=== PATIENT | female | born 1995 | race American Indian/Alaskan Native ===

== ENCOUNTER 2022-03-03 00:58 | Inpatient (IN) | payer OTHER ==
[~2022-03-03] VITALS: Ht 152.4 cm; Wt 67.6 kg
--- NOTE | 2022-03-03 11:11 | PR ---
[facility] [address] [place], [place] [address] Signed Progress Notes IP Datetime Report Generated by CPN: 03/03/2022 11:11 PROGRESS NOTES: [id number] Impression: Normal Progression of Labor; Reassuring Heart Rate Procedures: Intrauterine Pressure Catheter; Sterile Vag Exam Plan: Continue Present Management; Augmentation VITAL SIGNS: [id number] Vital Signs: Reviewed; Within Normal Limits EXAM: [id number] Dilatation: 3.0 Effacement: 80 Station: -2 Contractions: Irregular mild MEMBRANES: [id number] Amniotic Fluid Color: Clear Comments: Pt seen and examined. Doing well; comfortable w/ epidural. Ctxs appear irregular w/ external tocometer and slow cervical change noted. Recommended IUP that was placed w/out difficulty. Will continue augmentation per protocol until Ctxs adequate. Detailed vulvar exam performed confirming RN's exam of no lesions performed at admission FETUS A: [id number] FHR Baseline: 145 Variability: Moderate 6-25bpm Accelerations: None Decelerations: None FHR Category: Category I Presentation: Vertex Comments on Fetus A: No evidence of metabolic acidosis FETUS B: [id number] Signing Physician: Silvia Berry DO Copies: ~ *Electronically Signed* 03/03/22 SILVIA RODRIGUEZ DO PATIENT NAME: CHARLES ANAND PROGRESS NOTE DATE OF : [birth year] PHYSICIAN: SILVIA BERRY DO RPT #: [id number] REPORT IS CONFIDENTIAL AND NOT TO BE RELEASED WITHOUT AUTHORIZATION
--- NOTE | 2022-03-03 18:38 | PR ---
[facility] [address] [place], [place] [address] Signed Progress Notes IP Datetime Report Generated by CPN: 03/03/2022 18:38 PROGRESS NOTES: [id number] Impression: Normal Progression of Labor; Reassuring Heart Rate Procedures: Sterile Vag Exam Plan: Continue Present Management; Anticipate Vaginal Delivery Informed Consent Obtain: Vaginal Delivery VITAL SIGNS: [id number] Vital Signs: Reviewed; Within Normal Limits EXAM: [id number] Dilatation: 8.0 Effacement: 90 Station: -1 Contractions: Irregular mild MEMBRANES: [id number] Amniotic Fluid Color: Clear Comments: Pt seen and evaluated. Doing well. Uncomfortable w/ contractions and requesting epidural rebolus by anesthesia. On previous exam OP position noted and now resolved to OA position w/ maternal repositioning. FHT reassuring. Anticipate . Reviewed EFW and adequate pelvis. All questions answered FETUS A: [id number] FHR Baseline: 145 Variability: Moderate 6-25bpm Accelerations: None Decelerations: None FHR Category: Category I Presentation: Vertex Comments on Fetus A: No evidence of metabolic acidosis FETUS B: [id number] Signing Physician: Silvia Berry DO Copies: ~ *Electronically Signed* 03/03/22 183 SILVIA BERRY DO PATIENT NAME: CHARLES ANAND PROGRESS NOTE DATE OF : 96 PHYSICIAN: SILVIA BERRY #: [id number] REPORT IS CONFIDENTIAL AND NOT TO BE RELEASED WITHOUT AUTHORIZATION
--- NOTE | 2022-03-03 21:00 | PR ---
[facility] [address] [facility] [place], [place] [address] Signed Progress Notes IP Datetime Report Generated by CPN: 03/03/2022 21:00 PROGRESS NOTES: [id number] Impression: Normal Progression of Labor; Reassuring Heart Rate Procedures: Sterile Vag Exam Plan: Anticipate Vaginal Delivery Informed Consent Obtain: Vaginal Delivery VITAL SIGNS: [id number] Vital Signs: Reviewed; Within Normal Limits EXAM: [id number] Dilatation: 10.0 Effacement: 100 Station: 0 Contractions: Irregular mild MEMBRANES: [id number] Amniotic Fluid Color: Clear Comments: Pt seen and examined. Doing very well. Feeling strong pressure and urge to push with each contraction. Reassuring FHT. Pushing well with contractions. Anticipate soon. FETUS A: [id number] FHR Baseline: 145 Variability: Moderate 6-25bpm Accelerations: None Decelerations: None FHR Category: Category I Presentation: Vertex Comments on Fetus A: No evidence of metabolic acidosis FETUS B: [id number] Signing Physician: Silvia Berry DO Copies: ~ *Electronically Signed* 03/03/222099 SILVIA BERRY DO PATIENT NAME: CHARLES ANAND PROGRESS NOTE DATE OF : 96 PHYSICIAN: SILVIA BERRY DO RPT #: [id number] REPORT IS CONFIDENTIAL AND NOT TO BE RELEASED WITHOUT AUTHORIZATION
--- NOTE | 2022-03-04 18:27 | PR ---
[facility] [address] [facility] [place] [address] Signed PP Progress Notes Datetime Report Generated by CPN: 03/04/2022 18:27 SUBJECTIVE: [id number] Pain: Within Normal Limits Nausea/Vomiting: Denies Bowel Movement: No Vital Signs: [id number] Vital Signs: Reviewed; Within Normal Limits Cardiovascular: Normal Respiratory: Normal Abdomen/Uterus: Normal Lochia: Normal Vulva/Perineum: Not Done Breasts: Not Done CVA Tenderness: Not Done Extremities: Normal Incision: Not Applicable Progress: Normal Exam Comments: Fundus firm U-2 nontender IMPRESSION/PLAN/PROCEDURES: [id number] Impression: Normal Progression Plan: Continue Present Management Progress Notes: Pt doing well. No concerns. Hgb 10.7. Anticipate discharge tomorrow. Signing Physician: Silvia Berry DO Copies: ~ *Electronically Signed* 03/04/22 1827 SILVIA BERRY DO PATIENT NAME: CHARLES ANAND PROGRESS NOTE DATE OF : 96 PHYSICIAN: SILVIA BERRY DO RPT #: [id number] REPORT IS CONFIDENTIAL AND NOT TO BE RELEASED WITHOUT AUTHORIZATION
--- NOTE | 2022-03-05 11:23 | PR ---
[facility] [address] [facility] [place], [place] [address] Signed PP Progress Notes Datetime Report Generated by CPN: 03/05/2022 11:23 SUBJECTIVE: [id number] Pain: Within Normal Limits Nausea/Vomiting: Denies Flatus: Yes Bowel Movement: No Vital Signs: [id number] Vital Signs: Reviewed Cardiovascular: Normal Respiratory: Normal Abdomen/Uterus: Normal Lochia: Normal Vulva/Perineum: Not Done Breasts: Not Done CVA Tenderness: Normal Extremities: Normal Incision: Not Applicable Progress: Normal Exam Comments: Fundus firm U-2 nontender IMPRESSION/PLAN/PROCEDURES: [id number] Impression: Normal Progression Plan: Discharge Progress Notes: Pt seen and examined. Doing well. Ambulating, voiding, and tolerating full diet. Pain and lochia minimal. well. No fevers/chills or other concerns. Desires d/c home. All questions answered to best of my ability and to pt's apparent satisfaction. Reviewed instructions in detail. Signing Physician: Silvia Berry DO Copies: ~ *Electronically Signed* 03/05/22 1123 SILVIA BERRY DO PATIENT NAME: CHARLES ANAND PROGRESS NOTE DATE OF : 96 PHYSICIAN: SILVIA BERRY DO RPT #: [id number] REPORT IS CONFIDENTIAL AND NOT TO BE RELEASED WITHOUT AUTHORIZATION
== END 2022-03-05 14:30 | disposition home or self-care (01) | DRG 807 ==
LOC: FBCO 00:58 → FBC 01:29 → FBCO 03-09 14:43
PROVIDERS: ADMIT Obstetrics & Gynecology; ATTEND Obstetrics & Gynecology
PROC: 10E0XZZ Delivery of Products of Conception, External Approach (ICD-10-PCS; principal; 2022-03-03)
PROC: 00HU33Z Insertion of Infusion Device into Spinal Canal, Percutaneous Approach (ICD-10-PCS; 2022-03-03)
PROC: 3E0R3BZ Introduction of Anesthetic Agent into Spinal Canal, Percutaneous Approach (ICD-10-PCS; 2022-03-03)
PROC: 0HQ9XZZ Repair Perineum Skin, External Approach (ICD-10-PCS; 2022-03-03)
DX: O98.52 Other viral diseases complicating childbirth (principal); Z37.0 Single live birth; O70.0 First degree perineal laceration during delivery; Z3A.39 39 weeks gestation of pregnancy; O69.81X0 Labor and delivery complicated by cord around neck, without compression, not applicable or unspecified; B00.9 Herpesviral infection, unspecified
CPT/HCPCS: 01960; 36415; 85027; 86850; 86900; 86901; A9270; J2590; J2795; J3010; J7121; U0003